=== PATIENT | male | born 1990 | race Two or more races ===

== ENCOUNTER 2024-01-31 07:23 | Emergency (ER) | payer OTHER ==
[~2024-01-31] VITALS: Ht 188 cm; Wt 90.7 kg
[2024-01-31] MEDS ORDERED: KETOROLAC TROMETHAMINE 30 MG VIAL IM STA (08:31)
[2024-01-31] MEDS ORDERED: TRAMADOL HCL 50 MG TABLET PO STA (08:31)
[2024-01-31] MEDS ORDERED: KETOROLAC TROMETHAMINE 30 MG VIAL ONE (09:25)
== END 2024-01-31 10:35 | disposition home or self-care (01) ==
LOC: ER 07:24
DX: S22.31XA Fracture of one rib, right side, initial encounter for closed fracture (principal); S42.001A Fracture of unspecified part of right clavicle, initial encounter for closed fracture; W05.1XXA Fall from non-moving nonmotorized scooter, initial encounter; Y93.89 Activity, other specified; Y92.89 Other specified places as the place of occurrence of the external cause; Y99.9 Unspecified external cause status; Z88.8 Allergy status to other drugs, medicaments and biological substances
CPT/HCPCS: 71110; 73000; 73020; 73060; 73070; 96372; 99284; J1885